=== PATIENT | female | born 1945 | race Caucasian/White ===

== ENCOUNTER 2016-11-04 14:14 | Emergency (ER) | payer MEDICARE ==
--- NOTE | 2016-11-04 15:28 | ER PHYSICIAN DOCUMENTATION ---
Physician Documentation [facility] Name:Bebe Espinosa Age:71 yrs Sex:Female :1945 Arrival Date:11/04/2016 Time:14:14 Bed6 Private MD: Adi Rosales Disposition: 11/04/16 15:12 Discharged to Home/Self Care. Impression: Radial Head Fracture. - Condition is Good. - Discharge Instructions: RADIAL HEAD FRACTURE. - Medical Reconciliation form form. - Follow up: Berto Treviño DO, Himanshu Fagan MD; When: 1 week; Reason: Recheck today's complaints. - Problem is new. - Symptoms have improved. HPI: 11/04 14:51 This 71 yrs old Female presents to ER via Private Vehicle with complaints of sc Arm Injury. 14:51 The patient or guardian complains of injury, pain. The complaints affect the left sc antecubital area. Context: The problem was sustained outdoors, resulted from a fall, while walking. Treatment prior to arrival includes: no previous treatment. Modifying factors: the symptoms are aggravated by movement. Historical: - Allergies: No known drug Allergies; - Home Meds: 1. None - PMHx: None; - PSHx: None; - Tetanus: > 10 years. - Ebola Screening: : Patient denies exposure to infectious person. Patient denies travel to an Ebola-affected area in the 21 days before illness onset. . - Social history: Smoking status: Patient states was never smoker of tobacco. Patient uses alcohol occasionally. Patient/guardian denies using marijuana. ROS: 14:52 Constitutional: Negative for fever, chills, and weight loss. sc Eyes: Negative for injury, pain, redness, and discharge. ENT: Negative for injury, pain, and discharge. Neck: Negative for injury, pain, and swelling. Back: Negative for injury and pain. Skin: Negative for injury, rash, and discoloration. 14:52 Neuro: Negative for headache, weakness, numbness, tingling, and seizure. sc 14:52 MS/extremity: Positive for injury or acute deformity, pain. Exam: Constitutional: This is a well developed, well nourished patient who is awake, alert, and in no acute distress. Head/Face: Normocephalic, atraumatic. Eyes: Pupils equal round and reactive to light, extra-ocular motions intact. Lids and lashes normal. Conjunctiva and sclera are non-icteric and not injected. Cornea within normal limits. Periorbital areas with no swelling, redness, or edema. Neck: Trachea midline, no thyromegaly or masses palpated, and no cervical lymphadenopathy. Supple, full range of motion without nuchal rigidity, or vertebral point tenderness. No meningismus. Cardiovascular: Regular rate and rhythm with a normal S1 and S2. No gallops, murmurs, or rubs. Normal PMI, no JVD. No pulse deficits. Respiratory: Lungs have equal breath sounds bilaterally, clear to auscultation and percussion. No rales, rhonchi or wheezes noted. No increased work of breathing, no retractions or nasal flaring. Skin: Warm, dry with normal turgor. Normal color with no rashes, no lesions, and no evidence of cellulitis. 15:08 Neuro: Awake and alert, GCS 15, oriented to person, place, time, and situation. wv Cranial nerves II-XII grossly intact. Motor strength 5/5 in all extremities. Sensory grossly intact. Cerebellar exam normal. Normal gait. 15:08 Musculoskeletal/extremity: Extremities: grossly normal except: decreased ROM, pain, ROM: limited active range of motion due to pain, limited passive range of motion due to pain, Circulation is intact in all extremities. Sensation intact. Vital Signs: 14:34 BP 188 / 90; Pulse 98; Resp 18; Temp 98.9; Pulse Ox 90% on R/A; Pain 2/10; st 15:26 BP 162 / 81; st MDM: 14:46 Patient medically screened. sc 15:11 Differential diagnosis: dislocation, closed fracture, contusion. Data reviewed: vital sc signs, nurses notes, radiologic studies, and as a result, I will discharge patient. Counseling: I had a detailed discussion with the patient and/or guardian regarding: the historical points, exam findings, and any diagnostic results supporting the discharge/admit diagnosis, radiology results, the need for outpatient follow up, for a referral to a specialist. 11/04 14:42 Order name: ELBOW;[place] [id number] EDLA 11/04 14:36 Order name: Ice Packs; Complete Time: 14:36 st 11/04 15:07 Order name: ORTHO: Ice Pack; Complete Time: 15: wv 11/04 15:07 Order name: ORTHO: Splint; Complete Time: wv 11/04 15: Order name: ORTHO: Shoulder Immobilizer; Complete Time: wv Dispensed Medications: No medications were administered Signatures: Samria Paz RN Adi Dozier MD MD wv
--- NOTE | 2016-11-04 15:28 | ER NURSING DOCUMENTATION ---
Nurse's Notes [facility] Name:Bebe Espinosa Age:71 yrs Sex:Female :1945 Arrival Date:11/04/2016 Time:14:14 Bed6 Private MD: Diagnosis:Radial Head Fracture Presentation: 11/04 14:17 Acuity: MIKY 4 rh 14:24 Presenting complaint: Patient states: pt tripped and fell on on the left side yesterday st now she has pain in her left elbow worst with twisting of the arm. Transition of care: Home. 14:24 Method Of Arrival: Private Vehicle st Triage Assessment: 14:25 General: Appears in no apparent distress, Behavior is cooperative. Pain: Complains of st pain in left elbow Pain currently is 2 out of 10 on a pain scale. At worst was 7 out of 10 on a pain scale. Aggravated by moving of the left arm. Musculoskeletal:. Musculoskeletal: Circulation, motion, and sensation intact Historical: - Allergies: No known drug Allergies; - Home Meds: 1. None - PMHx: None; - PSHx: None; - Tetanus: > 10 years. - Ebola Screening: : Patient denies exposure to infectious person. Patient denies travel to an Ebola-affected area in the 21 days before illness onset. . - Social history: Smoking status: Patient states was never smoker of tobacco. Patient uses alcohol occasionally. Patient/guardian denies using marijuana. Screenin:35 Infectious Disease Risk None. Abuse screen: Denies threats or abuse. Denies injuries st from another. Nutritional screening: No deficits noted. Vital Signs: 14:34 BP 188 / 90; Pulse 98; Resp 18; Temp 98.9; Pulse Ox 90% on R/A; Pain 2/10; st 15:26 BP 162 / 81; st ED Course: 14:15 Patient arrived in ED. lm3 14:17 Triage completed. rh 14:24 Samira Paz, RN is Primary Nurse. st 14:35 Valuables Remains with patient. Ice pack to injury. st 14:42 ELBOW;[place] [id number] In Process Unspecified. EDMS 14:46 Adi Gu MD is Attending Physician. sc 15:11 Berto Treviño DO, Himanshu Fagan MD is Referral Physician. sc 15:17 posterior left arm from above the elbow to palm, wrapped in Sung. tg 15:18 CMS verified pre and post splinting. tg 15:26 Sling applied to left arm. CMS intact after splinting. st Administered Medications: No medications were administered Outcome: 15:12 Discharge ordered by . mt 15: Patient left the ED. st 11/05 16:26 Discharge F/U Call: Unable to reach: left voicemail: Signatures: Dispatcher [employer] EDEnrike Hameed RN RN Samira Paz RN RN st Coleman, Linda, RN RN lc Chew, Scott, MD MD sc Hofsess, Rachel rh McKibbon-Moore, Lisa lm3
--- NOTE | 2016-11-08 08:11 | RADIOLOGY REPORT ---
Three views of the left elbow demonstrate a comminuted interarticular radial head fracture. The smaller anterior fragment is not significantly displaced. The larger posterior fragment is displaced posteriorly, approximately 1 cm. The humerus and ulna appear intact. IMPRESSION: Comminuted displaced interarticular right radial head fracture. MTDD
== END 2016-11-04 15:27 | disposition home or self-care (01) ==
LOC: ER 14:14
DX: S52.122A Displaced fracture of head of left radius, initial encounter for closed fracture (principal); W19.XXXA Unspecified fall, initial encounter; Y92.89 Other specified places as the place of occurrence of the external cause; Y93.01 Activity, walking, marching and hiking
CPT/HCPCS: 29105; 99283